=== PATIENT | male | born 1965 | race Caucasian/White ===

== ENCOUNTER 2023-01-04 16:33 | Emergency (ER) | payer OTHER, SELFPAY ==
[2023-01-04 16:46] VITALS: BP 142/78; PULSE 85; RESP 18; TEMP 36; O2SAT 99
--- NOTE | 2023-01-04 16:49 | ED.SKABFB ---
HPI - Skin/Abscess/Foreign Bdy General Chief complaint: Skin/Abscess/Foreign Body Stated complaint: finger laceration Time Seen by Provider: 01/04/23 16:49 Source: patient Mode of arrival: ambulatory Limitations: no limitations History of Present Illness HPI narrative: 57-year-old male presents with laceration to distal aspect of left little finger. Injury happened approximately 1 hour prior to arrival. States that he was taking apart in [place] and cut himself on a piece of metal. Last tetanus was in 2013. Reports that he had apply several Band-Aids and could not get laceration to stop bleeding. Believes that he needs sutures. Distal neurovascularly intact. Range of motion intact. All systems reviewed and negative except as noted above. Related Data Home Medications Medication Instructions Recorded Confirmed amlodipine 5 mg tablet mg 01/04/23 ezetimibe 10 mg tablet mg 01/04/23 levothyroxine 25 mcg tablet mcg 01/04/23 metoprolol succinate 25 mg mg PO 01/04/23 tablet,extended release 24 hr rosuvastatin 40 mg tablet mg 01/04/23 sertraline 50 mg tablet mg 01/04/23 Allergies Allergy/AdvReac Type Severity Reaction Status Date / Time codeine Allergy Agitated Verified 01/04/23 17:04 Review of Systems Review of Systems: CONSTITUTIONAL: Denies fever, chills, or sweats. EYES: Denies visual changes, redness, or discharge. ENT: Denies rhinorrhea, congestion, sore throat, or otalgia. CARDIOVASCULAR: Denies chest pain, palpitations, or edema. RESPIRATORY: Denies cough or dyspnea. GASTROINTESTINAL: Denies abdominal pain, nausea, vomiting, or diarrhea. GENITOURINARY: Denies dysuria or hematuria. SKIN: Denies rash or itching. Reports laceration to left little finger. MUSCULOSKELETAL: Denies back pain, joint pain, or myalgia. NEUROLOGIC: Denies headache, numbness, or weakness. PSYCHIATRIC: Denies anxiety or depression. All other systems reviewed are negative, except as documented in HPI. PMFSH Comments At time of signature, agree with nursing past medical, surgical, social and family history. There is no relevant family history pertinent to the presenting complaint. Exam Narrative: GENERAL: This is a well-nourished, well-developed patient, in no apparent distress. HEAD: normocephalic, atraumatic. EYES: PERRL. Sclera clear/white. Vision is grossly intact. EARS: External ears normal NOSE: External nose normal NECK: Neck supple, non-tender without lymphadenopathy, masses or thyromegaly. CARDIOVASCULAR: Regular rate and rhythm without murmurs, gallops, or rubs. RESPIRATORY: Clear to auscultation. Breath sounds equal bilaterally. No wheezes, rales, or rhonchi. SKIN: warm, Dry, with no suspicious lesions or rash, good texture and turgor. Approximate 2 cm laceration to palmar aspect of left distal little finger. Continues to bleed. Range of motion and distal neurovascularly intact. NEURO: awake, alert, and oriented to person, place and time. There were no obvious focal neurologic abnormalities. EXTREMITIES: No joint tenderness, effusion, or edema noted. Course Course Level of Care: Express Care Visit Vital Signs Vital signs: Vital Signs Temperature 36.0 C L 01/04/23 16:46 Pulse Rate 85 01/04/23 16:46 Respiratory Rate 18 01/04/23 16:46 Blood Pressure 142/78 H 01/04/23 16:46 Pulse Oximetry 99 01/04/23 16:46 Oxygen Delivery Room Air 01/04/23 16:46 Temperature 36.0 C L 01/04/23 16:46 Pulse Rate 85 01/04/23 16:46 Respiratory Rate 18 01/04/23 16:46 Blood Pressure 142/78 H 01/04/23 16:46 Pulse Oximetry 99 01/04/23 16:46 Oxygen Delivery Room Air 01/04/23 16:46 Reviewed Procedures Laceration Laceration 1: Date: 01/04/23 Time: 17:15 Site: hand ( little finger) Side (If applicable): left Size (cm): 2 Description: linear Local Anesthetic: lidocaine 1% Amount of anesthesia used (mL): 2 Pre
[2023-01-04] MEDS: TETANUS,DIPHTHERIA,AC PERTUSSIS ADULT (0.5 ML) BOOSTRIX IM (16:58)
== END 2023-01-04 17:25 | disposition home or self-care (01) ==
PROVIDERS: Emergency Provider Nurse Practitioner Family
DX: S61.217A Laceration without foreign body of left little finger without damage to nail, initial encounter (principal); W45.8XXA Other foreign body or object entering through skin, initial encounter; Z23 Encounter for immunization; E78.00 Pure hypercholesterolemia, unspecified; I10 Essential (primary) hypertension; E89.0 Postprocedural hypothyroidism
CPT/HCPCS: 12001; 90471; 90715; 99213; G0463